=== PATIENT | male | born 1995 | race Caucasian/White ===

== ENCOUNTER 2022-11-15 08:53 | Emergency (ER) | payer OTHER, SELFPAY ==
--- NOTE | 2022-11-15 09:00 | DI.RAD_ITS ---
Exam(s) XR KNEE RT 4V+ EXAM: XR KNEE RT 4V+ CLINICAL HISTORY: pain. TECHNIQUE: 2D digital imaging was performed. Three views. COMPARISON: No exams were available for comparison FINDINGS: BONES: No acute fracture is present. No bony destructive lesion is seen. JOINTS: The knee is normally aligned. No joint effusion is seen. SOFT TISSUE: Smoothly marginated bony densities noted medial to the medial femoral condyle. IMPRESSION: No acute abnormality. DATA REPOSITORY: RADIATION DOSE DELIVERED:
[2022-11-15 09:05] VITALS: BP 121/71; PULSE 75; RESP 18; TEMP 37.1; O2SAT 99
--- NOTE | 2022-11-15 11:00 | DI.US_ITS ---
Exam(s) US LOWER EXTREMITY VENOUS RT EXAM: US LOWER EXTREMITY VENOUS RT CLINICAL HISTORY: pain/swelling. TECHNIQUE: Lower extremity venous ultrasound performed using grayscale, color-flow, and spectral Do ppler analysis. COMPARISON: No exams were available for comparison FINDINGS: The common femoral, femoral and popliteal veins demonstrate normal compressibility, augmentation, and color Doppler. The posterior tibial veins are patent. No saphenous vein thrombosis or other superfi cial venous thrombosis is seen. Navarro's cyst measuring 3.9 x 1.3 x 1.6 cm with extension into the pr oximal calf which measures 3.6 x 1.1 x 2.0 cm. IMPRESSION: Navarro's cyst extending into calf. No evidence of DVT. DATA REPOSITORY:
--- NOTE | 2022-11-15 11:23 | ED.GENADUL_ITS ---
Discharge Plan Disposition Patient Disposition: Home Condition: Stable Discharge Details Chief Complaint: Orthopedic Clinical Impression: Navarro's cyst Primary Care Provider: Gay,Local ED Provider: Kevin Lau Home Meds and New Rx's Prescriptions: No Action No Known Home Meds Discharge Instructions Instructions: Navarro Cyst (ED) Additional Instructions: X-ray is unremarkable, ultrasound reveals a Navarro's cyst. Wear compression wrapping as tolerated. [id number] ibuprofen as directed. Rest, elevate, cool and/or warm compresses every 2 hours for 20 minutes. Please watch for new or worsening symptoms and return to the ER for any concerns. Lastly, if symptoms or not improving over the next 5-7 days with conservative measures please follow-up with orthopedics. Referral provided. Referrals: Maxx Stubbs MD [ [facility] STAFF PHYSICIAN] - Medical Decision Making 27-year-old male denies significant past medical history, does report injuring what he believes or ligaments in his right knee as a child, presents now for 2-3-day history of right knee pain, mild in nature, swelling, some pulling on the back aspect of his knee into his calf. Patient reports he had a similar episode nearly 2 years ago, at that time he took anti-inflammatories and his symptoms resolved. He denies fever, chest pain, shortness of breath, numbness, tingling, weakness. Denies any obvious trauma. Plan to obtain x-ray of his right knee as well as ultrasound. X-ray unremarkable Ultrasound reveals Navarro's cyst. Discussed x-ray and US findings with patient. Compression wrapping applied. Orthopedic referral provided. Standard discharge and return precautions were provided. Patient understands, is agreeable to this plan, and has no additional questions or concerns upon discharge. This documentation was generated using [employer] system, please disregard any oddities of phrase or misspellings. Imaging Data Radiologic Study: Attestation: I personally reviewed and interpreted this imaging study as follows: Imaging: X-Ray Radiologist's impression: Exam(s) XR KNEE RT 4V+ EXAM: XR KNEE RT 4V+ CLINICAL HISTORY: pain. TECHNIQUE: 2D digital imaging was performed. Three views. COMPARISON: No exams were available for comparison FINDINGS: BONES: No acute fracture is present. No bony destructive lesion is seen. JOINTS: The knee is normally aligned. No joint effusion is seen. SOFT TISSUE: Smoothly marginated bony densities noted medial to the medial femoral condyle. IMPRESSION: No acute abnormality. Radiologic Study #2: Attestation: I personally reviewed and interpreted this imaging study as follows: Imaging: Ultrasound Radiologist's impression: This report is currently processing and HAS NOT BEEN OFFICIALLY SIGNED BY THE PHYSICIAN - ESTIMATED TIME OF APPROVAL IS 11/15/2022 11:51. Exam(s) US LOWER EXTREMITY VENOUS RT EXAM: US LOWER EXTREMITY VENOUS RT CLINICAL HISTORY: pain/swelling. TECHNIQUE: Lower extremity venous ultrasound performed using grayscale, color- flow, and spectral Doppler analysis. COMPARISON: No exams were available for comparison FINDINGS: The common femoral, femoral and popliteal veins demonstrate normal compressibility, augmentation, and color Doppler. The posterior tibial veins are patent. No saphenous vein thrombosis or other superficial venous thrombosis is seen. Navarro's cyst measuring 3.9 x 1.3 x 1.6 cm with extension into the proximal calf which measures 3.6 x 1.1 x 2.0 cm. IMPRESSION: Navarro's cyst extending into calf. No evidence of DVT. HPI General Mode of arrival: ambulatory . Date/Time Provider Initiated Documentation: 11/15/22 09:10 . Limitations to Documentation: no limitations . Information obtained by: patient . History of Present Illness 27 year old M presents to the emergency department with the chief complaint of Right knee pain and swelling, described as mild, Quality is described as aching, and is localized to the right and lower extremity. Patient reports no radiation. Patient started experiencing this day(s) (2-3) and it has been constant. No relieving factors improve symptom(s), No exacerbating factors reported . Patient notes no other symptoms.. Patient did receive the following treatments prior to arrival, none Related Data Home Medications Medication Instructions Recorded Confirmed Unknown [No Known Home Meds] 11/15/22 11/15/22 Allergies Allergy/AdvReac Type Severity Reaction Status Date / Time No Known Allergies Allergy Unverified 11/15/22 09:07 General Stated Complaint: Orthopedic ANTOINETTE: 4 Review of Systems Constitutional Constitutional: Denies fever(s) and Denies weakness Cardiovascular Cardiovascular: Denies chest pain and Denies dyspnea Respiratory Respiratory: Denies cough and Denies dyspnea Musculoskeletal Musculoskeletal: Reports arthralgias, Reports joint swelling, Denies numbness, Reports stiffness and Denies tingling Integumentary/Breasts Skin/Breast: Denies rash Neurologic Neurologic: Denies numbness, Denies tingling and Denies weakness PFSH All Active Problems (Updated 11/15/22 @ 11:52 by KALI Cotto) Navarro's cyst (Acute) Social History Smoking/Tobacco Use Status: Never Smoking risk assessment performed?: Yes Drug use: Daily Substance use type: marijuana Do you feel safe at home: Yes Do you feel safe in your relationship?: Yes Exam Const General: cooperative, healthy appearing, comfortable and no acute distress Orientation: alert and awake [facility] Head: normal to inspection, normocephalic and atraumatic Eyes Conjunctivae: conjunctivae normal Neck Neck: normal visual inspection, full ROM, no meningeal signs, trachea midline a nd supple Resp Effort & Inspection: normal respiratory effort and able to speak in complete sentences Auscultation: clear to auscultation bilaterally Cardio Rate: regular rate Rhythm: regular rhythm Skin General skin exam: no rashes or lesions noted Neuro General: patient alert, patient awake, moves all extremities and no focal motor deficits Cognition: normal cognition Speech: speech normal Gait: normal gait Motor: muscle tone normal throughout Sensory Exam: no sensory deficits noted Extrem General: full ROM and capillary refill normal Other: Right knee is stable. Full range of motion. Neuro, vascular, tendon intact. Negative Homans' sign. Normal pedal pulse and capillary refill. There is no erythema or warmth. There is diffuse mild anterior swelling but no obvious joint effusion. On the posterior aspect there is discomfort but no palpable cord. Psych Appearance: grossly normal Mental Status: mental status grossly normal Course Vital Signs Vital signs: Vital Signs Temperature 37.1 C 11/15/22 09:05 Pulse 75 11/15/22 09:05 Respiratory Rate 18 11/15/22 09:05 Blood Pressure 121/71 11/15/22 09:05 Pulse Oximetry 99 11/15/22 09:05 Temperature 37.1 C 11/15/22 09:05 Temperature Source Skin 11/15/22 09:05 Pulse 75 11/15/22 09:05 Respiratory Rate 18 11/15/22 09:05 Respiratory Effort 11/15/22 09:08 Blood Pressure 121/71 11/15/22 09:05 Blood Pressure Position Sitting 11/15/22 09:05 Pulse Oximetry 99 11/15/22 09:05 Oxygen Delivery Method Room Air 11/15/22 09:05 Oxygen Flow Rate 0 11/15/22 09:05 Pain Level 2 11/15/22 09:05 PAWSS Have you Been Recently Intoxicated or Drunk Within the Last 30 days?: Yes Have you Ever Experienced Previous Episodes of Alcohol Withdrawal?: No Have you ever Experienced Withdrawal Seizures?: No Have you ever Experienced Delirium Tremens(DT)s?: No Have you ever undergone Alcohol Rehabilitation Treatment (i.e, inpt ot outpatient treatment programs)?: No Have you ever Experienced Blackouts?: Yes Have you ever Combined Alcohol with other Downers within the last 90 days?: Yes Have you ever Combined Alcohol with any other Substance of Abuse during the last 90 days?: No Positive Blood Alcohol level on Presentation? [PCS.BAL]: No Evidence of Increased Autonomic Activity (i.e. HR>120, tremor, sweating, agitation, nausea)?: No Result: 2
== END 2022-11-15 15:48 | disposition home or self-care (01) ==
PROVIDERS: Emergency Provider Physician Assistant
DX: M71.21 Synovial cyst of popliteal space [Baker], right knee (principal)
CPT/HCPCS: 99284; 73564; 93971; 99282

== ENCOUNTER 2022-12-03 02:10 | Outpatient (CLI) | payer OTHER, SELFPAY ==
--- NOTE | 2022-12-03 14:15 | DI.MRI_ITS ---
Exam(s) MR LOWER JOINT RT WO EXAM: MR LOWER JOINT RT WO CLINICAL HISTORY: PAIN, INJURY,internal derangement, m23.91 TECHNIQUE: Multiplanar multisequence MRI of the knee was performed. COMPARISON: CR XR KNEE RT 4V+ from 11/15/2022 FINDINGS: EFFUSION: There is a very large knee joint effusion. There are no obvious loose intra-articular bodi es. There is also a Navarro cyst in the medial popliteal fossa which is ruptured, exhibiting leakage d own the medial gastrocnemius surface MARROW:There is no evidence of fracture, bone contusion, nor osteochondral defects.. There are no si gnificant osseous lesions. PATELLOFEMORAL COMPARTMENT: The quadriceps tendon is intact. Increased signal seen the inferior aspe ct of the patellar ligament but without a full-thickness tear. There is no significant thinning of the retropatellar cartilage. No evidence of fissure nor signific ant chondral defect. No osteochondral defect at this level.There is no intraosseous signal to sugges t recent patellar dislocation. There are no patellar retinacular tears. CRUCIATE LIGAMENTS: The anterior cruciate ligament is intact.The posterior cruciate ligament is intac t. MEDIAL COMPARTMENT/MEDIAL MENISCUS: There is a subtle tear in the superior aspect of the outer 3rd of the posterior horn of the medial meniscus, best seen on the coronal images. No prominent meniscocap sular separation. No overlying bone edema. No obvious tear in the anterior horn of the medial menis cus. There are no chondral defects, osteochondral defects, subarticular marrow edema, nor osteophytes evid ent. MEDIAL COLLATERAL LIGAMENT: There is abnormal fluid around the medial collateral ligament. Sprain-pa rtial tearing. No full-thickness tear of this structure evident. LATERAL COMPARTMENT/LATERAL MENISCUS: There is tear in the posterior horn of the lateral meniscus jus t medial to the root. Anterior horn appears intact.There are no chondral defects, osteochondral defe cts, subarticular marrow edema, nor osteophytes evident. ILIOTIBIAL BAND: Intact LATERAL COLLATERAL LIGAMENT COMPLEX: There is prominent fluid in the popliteus tendon sheath but no h igh-grade tear of this component of the lateral collateral ligament complex. IMPRESSION: 1. There is tear in the posterior horn of the lateral meniscus adjacent to the root and there is also a more subtle tear in superior aspect of the outer 3rd of the posterior horn of the medial meniscus. 2. There is sprain-partial tearing of the MCL but no full-thickness tear of the medial collateral lig ament. 3. There are no cruciate ligament tears. 4. No bone contusions nor osteochondral defects. No prominent chondral malacia. Mild bone edema is noted in the patella. No large patellar contusion nor fracture and there is no thinning of the retr opatellar cartilage. 5. Very large joint effusion and partially ruptured Navarro cyst in the medial popliteal fossa. No obv ious loose intra-articular bodies. DATA REPOSITORY:
== END 2022-12-03 02:30 ==
LOC: DI 02:10
PROVIDERS: Visit Provider Student in an Organized Health Care Education/Training Program
DX: M25.561 Pain in right knee; M23.8X1 Other internal derangements of right knee; S83.281A Other tear of lateral meniscus, current injury, right knee, initial encounter; S83.241A Other tear of medial meniscus, current injury, right knee, initial encounter; S83.411A Sprain of medial collateral ligament of right knee, initial encounter; M25.461 Effusion, right knee; M71.21 Synovial cyst of popliteal space [Baker], right knee
CPT/HCPCS: 73721

== ENCOUNTER 2022-12-27 09:00 | Day surgery (SDC) | payer OTHER, SELFPAY ==
[2022-12-27] VITALS (9 sets, daily range): BP systolic 114–128; BP diastolic 58–87; PULSE 57–86; RESP 16–25; TEMP 36.3–37; O2SAT 95–100; BMI 23.9
--- NOTE | 2022-12-27 10:26 | W.PM.DSUDISC ---
Date of service: 12/27/22 Time of Service: 16:00 Discharge Plan Discharge Details Attending Provider: Maxx Stubbs Primary Care Provider: No,Local Home Meds and New Rx's Prescriptions: New aspirin 81 mg tablet,delayed release (DR/EC) 81 mg PO DAILY 14 Days Qty: 14 0RF naproxen 250 mg tablet 250 - 500 mg PO BID PRNQty: 40 0RF Rx Instructions: take with a meal oxycodone 5 mg tablet 5 - 10 mg PO Q4H MDD 30 mg PRN (Reason: moderate to severe pain) Qty: 18 0RF Discharge Instructions Additional Instructions: Surgery: Right knee arthroscopy with partial lateral meniscectomy and synovectomy Activity: Weightbearing as tolerated. Advance range of motion as comfort allows. No knee brace or crutches needed as soon as comfortable. Recommend avoiding sports, pivoting, and squatting for 6-8 weeks. A physical therapy prescription will be sent electronically to start in 2 to 3 weeks. Prescriptions: Aspirin 81 mg take 1 daily to prevent a blood clot for 14 days Naproxen 250 mg take 1-2 every 12 hours with a meal as needed for moderate pain Oxycodone 5 mg take 1-2 every 4-6 hours as needed for severe pain You may use [id number] Tylenol (acetaminophen) as needed for mild pain. These pain medications may be taken all at once or in different combinations as needed. Also, recommend Colace (docusate) as a stool softener as surgery and pain medicine cause constipation. You may try [id number] diphenhydramine (Benadryl) 25-50 mg nightly as a sleep aid Dressings: Leave dressing in place for 3 days. May then remove and leave open to air or cover incisions with Band-Aids. Leave the sticky Steri-Strips in place until they fall off or remove them after you shower. May shower after 5 days. Follow-up: 10-[address] Stubbs You may take off the leg compression stockings this evening at home. You may also leave them on a few days longer if you have a history of leg swelling or edema. Let us know right away if you develop any redness, drainage, fevers, chest pain, or trouble breathing. Do not drink alcohol or drive for at least 24 hours after anesthesia. Please call the office during business hours with any questions or concerns. DS: Diagnosis Discharge Diagnosis (1) Acute lateral meniscus tear of right knee: Status: Acute
--- NOTE | 2022-12-27 10:28 | W.PM.OP ---
Date of service: 12/27/22 Time of Service: 14:00 Operative Note Operative Note DATE OF PROCEDURE: 12/27/22 PRE-OP DIAGNOSIS: Right knee 1. Lateral meniscus tear 2. Synovitis POST-OP DIAGNOSIS: same PROCEDURE: Right knee 1. Partial lateral meniscectomy, CPT #56920 2. Greater than 2 compartment synovectomy, CPT #14215: Suprapatellar, posterior medial, anterior medial, and intercondylar SURGEON: Maxx Stubbs SENIOR INFORMATION DEVELOPER: Celsa Barrera ANESTHESIA TYPE: Local By Surgeon and General LMA/ETT Refer to Anesthesia Record ESTIMATED BLOOD LOSS: 5 PATHOLOGY: none sent TOURNIQUET TIME: 0 Patient was transported to: PACU Patient's condition: stable Indications: Please see complete medical record for details. Findings: Exam under anesthesia: Mechanical clunk lateral compartment with flexion extension. Stable varus, valgus, Anh, and anterior drawer. Full range of motion. Arthroscopic findings: Significant synovitis and synovial villi in the suprapatellar space, engaging in the patellofemoral compartment, abundant synovitis anteriorly including intercondylar area, anterior medial, anterior lateral, and remarkably still even posterior medial compartment. Intact ACL, PCL, and medial meniscus. No loose body medial gutter. No meniscocapsular separation or superior peripheral medial meniscus tear. Lateral meniscus was large, possibly redundant from discoid etiology, parrot-beak type tear with small frayed attachment in the central posterior horn. Flipped displaced fragment posterior and hidden behind the lateral tibial plateau. Intact root. Moderate amount of additional horizontal tearing between superior and inferior leaflets and fraying through the remainder of the lateral meniscus remnant. Procedure Description: In the operating room, general anesthesia was induced. The patient was positioned supine on the operating room table. All bony prominences were well-padded. Preoperative antibiotics were administered. The knee was prepped and draped in the usual sterile fashion. The correct patient, procedure, and side of the procedure were all verified prior to incision. Exam under anesthesia was performed. 10 cc of 0.5% bupivacaine containing epinephrine was infiltrated about the planned anteromedial and anterolateral knee arthroscopy portals. The portals were established and a complete diagnostic arthroscopy was performed with relevant findings detailed above. The mechanical shaver was used to remove abundant inflamed, engaging, and pathologic synovium from the suprapatellar space, patellofemoral compartment, anterior medial, anterior lateral, intercondylar area, and carefully in the posterior medial compartment. The posterior horn lateral meniscus tear was well hidden. It was flipped behind the lateral tibial plateau and had to be found with the shaver. The large parrot-beak fragment was then excised using meniscal biters from its attachment on the posterior horn centrally. It was then removed in piecemeal through the anteromedial portal and with the mechanical shaver. The meniscal remnant was then probed and a combination of hand instruments including meniscal biters and a power shaver and working through the anteromedial and anterolateral portals the meniscus was debrided of all residual torn tissue to a stable margin. Care was taken to preserve as much meniscus tissue was possible. The meniscal remnant was probed and found to have a stable margin, stable root, and no other tears Under direct arthroscopic visualization an 18-gauge needle was passed into the knee from superolateral into the suprapatellar pouch. The knee was copiously irrigated with arthroscopic fluid until there was a clear effluent before being drained of all fluid. The anteromedial and anterolateral portals were closed in 3-0 Monocryl in a buried interrupted fashion. 20 cc of 0.5% bupivacaine with epinephrine containing 4 mg of morphine was infiltrated into the knee through the previously placed needle. Mastisol, Steri-Strips, and 4 x 4 gauze were applied over the incisions followed by sterile soft roll. The knee was then wrapped gently with an FELICITA comressive bandage. The patient awoke from anesthesia without complication and was transferred to the recovery room in a stable condition.
[2022-12-27] MEDS: Lactated Ringers 1,000 ML 30 ML IV (10:40)
--- NOTE | 2022-12-27 11:05 | W.ANESPRE ---
General Info Date of Service Date Performed: 12/27/22 Height: 6 ft 1 in Weight: 82.2 kg Body Mass Index (BMI): 23.9 Surgical Procedure: Operation Date: 12/27/22 12:10 Proposed Procedure Side Surgeon p Knee Arthroscopy, Medial & Lateral Meniscectomy &/Or Repair w/ Bone Marrow Stimulation Right Maxx Stubbs MD Meds Allergies and Home Medications Allergies Allergy/AdvReac Type Severity Reaction Status Date / Time No Known Allergies Allergy Verified 12/27/22 10:16 Home Medication Medication Instructions Recorded Unknown [No Known Home Meds] 11/15/22 Current Visit Medications: Current Medications Generic Name Dose Route Start Last Admin Trade Name Freq PRN Reason Stop Dose Admin Acetaminophen 1,000 mg 12/27/22 07:27 Acetaminophen 500 Mg Tab PO Q6H PRN PRN Ringer's Solution 1,000 mls @ 30 mls/hr 12/27/22 06:00 12/27/22 10:40 IV 12/27/22 16:00 30 mls/hr INFUSION DONOVAN Administration Cefazolin Sodium/Dextrose 2 gm in 50 mls @ 100 mls/hr 12/27/22 06:00 Ancef Duplex IVPB 12/27/22 23:59 PREOP DONOVAN IV Miscellaneous Supplies 1 each 12/27/22 06:00 Iv Access IV 12/27/22 23:59 DIRECTED DONOVAN Naproxen 250 - 500 mg 12/27/22 07:27 Naproxen 500 Mg Tab PO BID PRN PRN Oxycodone HCl 0 mg 12/27/22 07:27 Oxycodone 5 Mg Tab PO Q3H PRN PRN Pain Sodium Chloride 0 ml 12/27/22 06:00 Normal Saline Flush 10 Ml Syr IV 12/27/22 23:59 PRN PRN Sodium Chloride 0 ml 12/27/22 06:00 Normal Saline 10 Ml Vial IJ 12/27/22 23:59 DIRECTED PRN Sterile Water 0 ml 12/27/22 06:00 Water,Injection,Sterile 10 Ml Vial IJ 12/27/22 23:59 DIRECTED PRN PFSH Active Problems Active Problems: Problem Status Onset Code Effusion, right knee M25.461 Acute lateral meniscus tear of right knee S83.281A Internal derangement of right knee M23.91 Tobacco Smoking/Tobacco Use Status: Former Tobacco Use Alcohol Alcohol Intake: current Alcohol intake frequency: a few times a month Substance Use Substance use: Daily Substance use type: marijuana Vital Signs and Lab Results Vital Signs Most Recent Vital Signs in EMR: Most Recent Vital Signs Temp Pulse Resp BP Pulse Ox 37.0 C 66 16 127/66 100 12/27/22 10:17 12/27/22 10:17 12/27/22 10:17 12/27/22 10:12/27/22 10:17 Lab Results Blood Type / Crossmatch: No Data to Display Complete Blood Count: No Data to Display Complete Metabolic Panel: No Data to Display Liver Function Panel: No Data to Display Coagulation Panel: No Data to Display Cardiac Panel: No Data to Display Arterial Blood Gas: No Data to Display Venous Blood Gas: No Data to Display Pancreas Panel: No Data to Display Thyroid Panel: No Data to Display Infectious Disease: No Data to Display Blood Cultures: No Data to Display Toxicology Panel: No Data to Display Anesthesia Assessment and Plan Anesthesia History Personal History: No History of General Anesthesia Family History: No Family History of Anesthesia Complications Exercise Tolerance Exercise Tolerance: Metabolic Equivalents>4 Cardiac & Pulmonary Exam Cardiac Exam: Normal S1/S2 Heart Sounds Pulmonary Exam: Clear Bilateral Breath Sounds Implantable Cardiac Device Does patient have a Pacemaker or an ICD?: No Airway Exam Known Difficult Airway: No Mallampati Class: 1 Mouth Opening: Normal (> 3cm) Thyromental Distance: Greater than 3 cm Neck Range of Motion: Full ROM Neck Circumference: Normal Teeth Condition: Normal Dentition ASA Classification ASA Score: ASA 2 Emergency Case?: No NPO Status NPO Status: NPO Clears >2 hours, Solids >8 hours Anesthesia Plan Resuscitation Status: Full Code Anesthesia Technique: General Anesthesia Airway Planned: Endotracheal Tube Monitors Used: Standard Monitors Preoperative Comments:: 27 yo male for knee scope. Sig PMHx: former smoker, daily cannabis, occ EtOH, no home meds.
[2022-12-27] MEDS: ceFAZolin 2 GM/50 ML BAG IVPB (13:22)
[2022-12-27] MEDS: MORPHine 4 MG/ML SYR (13:59)
[2022-12-27] MEDS: Bupivacaine 0.5% Pres-Free W/EPI 30 ML VIAL (13:59)
[2022-12-27] MEDS: EPINEPHrine 30 MG/30 ML VIAL (14:00)
--- NOTE | 2022-12-27 15:54 | W.ANESPOSTOP ---
Postoperative Evaluation Date, Time and Location Date Performed: 12/27/22 Time Performed: 15:44 Patient Location: Day Surgery Unit Vital Signs Most Recent Imported Vital Signs: Most Recent Vital Signs Temp Pulse Resp BP Pulse Ox 36.3 C L 86 16 128/87 100 12/27/22 15:33 12/27/22 15:33 12/27/22 15:33 12/27/22 15:33 12/27/22 15:33 Pain Score Most Recent Pain Score: Most Recent Pain Score Pain Level 3 12/27/22 15:33 Assessment Mental Status: Awake (Alert & Oriented to Patient Baseline) Airway and Respiratory Function: Patent airway with normal (patient baseline) respiratory exam Cardiovascular Function: Hemodynamically Stable Hydration Status: Adequately Hydrated Nausea & Vomiting: No Nausea or Vomiting Pain: Pt. Denies Any Pain Peripheral Nerve Block: Patient did not receive a nerve block
[2022-12-27] MEDS: Naproxen 500 MG TAB PO (15:55)
== END 2022-12-27 16:22 | disposition home or self-care (01) ==
PROVIDERS: Visit Provider Student in an Organized Health Care Education/Training Program
PROC: (CPT 29870; principal; 2022-12-27 12:00)
DX: S83.281A Other tear of lateral meniscus, current injury, right knee, initial encounter (principal); M65.861 Other synovitis and tenosynovitis, right lower leg; X58.XXXA Exposure to other specified factors, initial encounter
CPT/HCPCS: 29876; 29881; J0690; J1100; J1885; J2270; J2405; J2704